=== PATIENT | female | born 1955 | race Caucasian/White ===

== ENCOUNTER 2024-01-07 17:00 | Outpatient (CLI) | payer MEDICARE, BC | END 2024-01-07 17:01 | disposition home or self-care (01) | LOC: CSHSLEEP 17:00 | PROVIDERS: ATTEND Nurse Practitioner Family | DX: G47.33 Obstructive sleep apnea (adult) (pediatric) (principal); R53.83 Other fatigue; E66.9 Obesity, unspecified; Z68.41 Body mass index [BMI] 40.0-44.9, adult; R06.83 Snoring; I50.9 Heart failure, unspecified | CPT/HCPCS: 95811 ==

== ENCOUNTER 2025-02-10 07:54 | Outpatient (CLI) | payer MEDICARE, BC | END 2025-02-10 07:55 | disposition home or self-care (01) | LOC: CSHMAMMO 07:54 | PROVIDERS: ATTEND Nurse Practitioner Family | DX: N63.10 Unspecified lump in the right breast, unspecified quadrant (principal) | CPT/HCPCS: 77066; G0279 ==